=== PATIENT | male | born 1985 | race Caucasian/White ===

== ENCOUNTER 2017-07-06 16:54 | Emergency (ER) | payer SELFPAY ==
[~2017-07-06 16:54] MED LIST: HYDR10SO PO; MEDR4PAK3 PO
[2017-07-06 16:57] VITALS: BP 160/94; PULSE 109; RESP 12; TEMP 99; O2SAT 99
--- NOTE | 2017-07-06 17:42 | PD ---
HPI Chief Complaint: Injury Time Seen by Provider: 17:32 Travel History International Travel<30 days: No Contact w/Intl Traveler<30days: No Traveled to known affect area: No History of Present Illness HPI 31 male presents to emergency department with right hand and wrist pain after a tree stump fell against his hand and a pole yesterday. Patient states that the hand and wrist have been painful without relief which is why he is here today. Patient states that he has not tried any medication for this pain. Denies numbness to the area but does have some tingling. Patient states he has trouble making a fist secondary to pain. His pain is located in the wrist and metacarpal area. Pain is described as moderate and aching. Increases with movement. Patient denies radiation of pain. PFSH Past Medical History Headaches: Yes Neurologic: Yes (CYST ON HEAD) Migraines: Yes Seizures: Yes (ONE TIME MANY YEARS AGO) Social History Alcohol Use: Yes (OCC) Tobacco Use: No Substance Use: No Allergies-Medications (Allergen,Severity, Reaction): Coded Allergies: No Known Allergies (Verified Adverse Reaction, Unknown, 07/06/17) Reported Meds & Prescriptions Reported Meds & Active Scripts Active Review of Systems Except as stated in HPI: all other systems reviewed are Neg Physical Exam Narrative GENERAL: Well-nourished, well-developed patient. SKIN: Focused skin assessment warm/dry. HEAD: Normocephalic. EYES: No scleral icterus. No injection or drainage. NECK: Supple, trachea midline. No JVD or lymphadenopathy. CARDIOVASCULAR: Regular rate and rhythm without murmurs, gallops, or rubs. RESPIRATORY: Breath sounds equal bilaterally. No accessory muscle use. MUSCULOSKELETAL: No cyanosis, or edema. Right hand- TTP to the metacarpals without deformities or ecchymosis. Mild edema. Right wrist-TTP to radius and ulna without ecchymosis or deformities. BACK: Nontender without obvious deformity. No CVA tenderness. Data Data Last Documented VS Vital Signs Date Time Temp Pulse Resp B/P (MAP) Pulse Ox O2 Delivery O2 Flow Rate FiO2 07/06/17 19:06 07/06/17 16:57 99.0 109 12 99 Orders Orders Acetamin-Hydrocod 325-5 Mg ([place] 5-325 (07/06/17 17:45) Wrist, Complete ([id number]) (07/06/17 ) Hand, Complete ([id number]) (07/06/17 ) Support Splint (07/06/17 18:52) Ed Discharge Order (07/06/17 18:52) [facility] Medical Decision Making Medical Screen Exam Complete: Yes Emergency Medical Condition: Yes Differential Diagnosis Right wrist fracture versus contusion versus sprain Right hand fracture versus contusion versus sprain Narrative Course 31 male presents to emergency department with right hand and wrist pain after a tree stump fell against his hand and a pole yesterday. Patient states that the hand and wrist have been painful without relief which is why he is here today. Patient states that he has not tried any medication for this pain. Denies numbness to the area but does have some tingling. Patient states he has trouble making a fist secondary to pain. His pain is located in the wrist and metacarpal area. Pain is described as moderate and aching. Increases with movement. Patient denies radiation of pain. Vital signs stable Physical exam consistent with a contusion without deformities or abscess. hand and wrist xray- no acute process Patient advised to use [id number] anti-inflammatories for his pain. Advised to use rest ice compression and elevation for his pain. Follow-up with primary care physician within 2-3 days Return to emergency department for worsening or persistent symptoms. Diagnosis Primary Impression: Contusion of right hand Qualified Codes: S60.221A - Contusion of right hand, initial encounter Additional Impression: Contusion of right wrist Qualified Codes: S60.211A - Contusion of right wrist, initial encounter Referrals: Primary Care Physician Additional Instructions: Recommend rest, ice, use Ulises wrap, and elevate the wrist and hand for symptomatically. May use Tylenol or Motrin per package instructions. Follow-up with her primary care physician within 2-3 days. Your symptoms persist or worsen return to the emergency department Disposition: 01 DISCHARGE HOME Condition: Stable Madelin Red Jul 06, 2017 17:42
[2017-07-06] MEDS ORDERED: ACETAMINOPHEN/HYDROcodone 325 MG/5 MG TAB PO ONE (17:45)
--- NOTE | 2017-07-06 18:43 | RADRPT ---
EXAM DATE/TIME: 07/06/2017 17:47 [facility] COMPARISON: No previous studies available for comparison. INDICATIONS : Right hand 3rd and 4th finger pain, caught between pole and post MEDICAL HISTORY : None. SURGICAL HISTORY : None. ENCOUNTER: Initial ACUITY: 3 days PAIN SCORE: 8/10 LOCATION: Right Hand FINDINGS: Three view examination of the right hand demonstrates no soft tissue swelling, dislocation, or fractu re. The carpal bones appear intact. The interphalangeal and metacarpophalangeal joints are intact. Bony mineralization is normal. CONCLUSION: No fracture. Camilo Solo MD on July 06, 2017 at 18:40 Board Certified Radiologist. This report was verified electronically.
--- NOTE | 2017-07-06 18:49 | RADRPT ---
EXAM DATE/TIME: 07/06/2017 17:48 [facility] COMPARISON: No previous studies available for comparison. INDICATIONS : Right posterior wrist pain, caught between pole and post MEDICAL HISTORY : None. SURGICAL HISTORY : None. ENCOUNTER: Initial ACUITY: 3 days PAIN SCORE: 5/10 LOCATION: Right Wrist FINDINGS: Three view examination of the right wrist demonstrates no soft tissue swelling, dislocation, or fract ure. The carpal bones are in normal alignment. The joint spaces are maintained. Bony mineralizatio n is normal except for a probable small bone island associated with the hamate. CONCLUSION: 1. Benign-appearing bone island on the hamate. 2. Otherwise negative. No fracture. Camilo Solo MD on July 06, 2017 at 18:43 Board Certified Radiologist. This report was verified electronically.
== END 2017-07-06 19:08 | disposition home or self-care (01) ==
LOC: NEPK 16:54
DX: S60.221A Contusion of right hand, initial encounter (principal); S60.211A Contusion of right wrist, initial encounter; R56.9 Unspecified convulsions; W22.8XXA Striking against or struck by other objects, initial encounter
CPT/HCPCS: 73110; 73130; 99283

== ENCOUNTER 2017-10-27 14:50 | Emergency (ER) | payer SELFPAY ==
[2017-10-27 14:56] VITALS: BP 143/86; PULSE 119; RESP 18; TEMP 100.9; O2SAT 99
--- NOTE | 2017-10-27 15:53 | RADRPT ---
EXAM DATE/TIME: 10/27/2017 15:43 [facility] COMPARISON: WRIST RIGHT COMPLETE ([id number]), July 06, 2017, 17:48. INDICATIONS : Short of breath, cough. MEDICAL HISTORY : None. SURGICAL HISTORY : None. ENCOUNTER: Initial ACUITY: 1 day PAIN SCORE: 5/10 LOCATION: Bilateral chest FINDINGS: PA and lateral views of the chest demonstrate the lungs to be symmetrically aerated without evidence of mass, infiltrate or effusion. The cardiomediastinal contours are unremarkable. Osseous structure s are intact. CONCLUSION: 1. No acute cardiopulmonary findings. Chet Silva MD on October 27, 2017 at 15:49 Board Certified Radiologist. This report was verified electronically.
[2017-10-27 17:56] LABS: BASOPHIL % 0.2 % (0.0-2.0); EOSINOPHIL % 0.1 % (0.0-4.0); HEMATOCRIT 44.5 % (39.0-51.0); HEMOGLOBIN 15.1 GM/DL (13.0-17.0); LYMPH % 5.7 % (9.0-44.0); LYMPHOCYTE # 0.4 TH/MM3 (1.0-4.8); MEAN CELL VOLUME 91.4 FL (80.0-100.0); MEAN CORPUSCULAR HEMOGLOBIN 31.1 PG (27.0-34.0); MEAN PLATELET VOLUME 6.8 FL (7.0-11.0); MONOCYTE # 1.1 TH/MM3 (0-0.9); PLATELET COUNT 230 TH/MM3 (150-450); RED BLOOD COUNT 4.87 MIL/MM3 (4.50-5.90); RED CELL DISTRIBUTION WIDTH 13.6 % (11.6-17.2); WHITE BLOOD COUNT 7.6 TH/MM3 (4.0-11.0)
[2017-10-27 18:04] LABS: PROTHROMBIN TIME - PATIENT 10.1 SEC (9.8-11.6)
[2017-10-27 18:10] LABS: BACTERIA, URINE RARE /hpf; BILIRUBIN, URINE NEG (NEG); BLOOD, URINE NEG (NEG); GLUCOSE,URINE NEG (NEG); KETONE, URINE 10 mg/dL (NEG); MUCUS URINE MANY /lpf (OCC); NITRITE,URINE NEG (NEG); URINE COLOR YELLOW (YELLW/STRAW); URINE LEUKOCYTE ESTERASE NEG (NEG)
[2017-10-27 18:13] LABS: ALBUMIN 4.6 GM/DL (3.4-5.0); ALT (GPT) 49 U/L (12-78); AST (GOT) 28 U/L (15-37); BICARBONATE 29.1 MEQ/L (21.0-32.0); BLOOD UREA NITROGEN 12 MG/DL (7-18); CALCIUM 9.1 MG/DL (8.5-10.1); CHLORIDE 101 MEQ/L (98-107); CREATININE 1.16 MG/DL (0.60-1.30); GLOMERULAR FILTRATION RATE 74 ML/MIN (>89); GLUCOSE,RANDOM 86 MG/DL (74-106); SODIUM (NA) 138 MEQ/L (136-145)
[2017-10-27 18:14] LABS: ALKALINE PHOSPHATASE 56 U/L (45-117); TOTAL BILIRUBIN ADULT 0.4 MG/DL (0.2-1.0); TOTAL PROTEIN 8.1 GM/DL (6.4-8.2)
[2017-10-27 19:02] VITALS: BP 159/81; PULSE 105; RESP 24; O2SAT 97
[2017-10-27] MEDS ORDERED: SODIUM CHLOR 0.9% 1000 ML INJ 1,000 ML IV ONE ×2 (19:45→21:00)
[2017-10-27] MEDS ORDERED: RESP: LIDOCAINE HCL 4% PF 5 ML NEB NEB ONE (19:45)
[2017-10-27] MEDS ORDERED: KETOROLAC TROMETHAMINE 30 MG/ML (IVP) VIAL IV PUSH ONE (19:45)
[2017-10-27] MEDS ORDERED: methylPREDNISolone SOD SUCC 125 MG/2 ML VIAL IV PUSH ONE (19:45)
[2017-10-27 20:23] VITALS: TEMP 102.7
[2017-10-27 20:35] VITALS: O2SAT 100
[2017-10-27] MEDS ORDERED: CIPR-9 PO (23:11)
--- NOTE | 2017-10-27 23:12 | PD ---
HPI . Respiratory symptoms Chief Complaint: Respiratory Symptoms Time Seen by Provider: 19:24 Travel History International Travel<30 days: No Contact w/Intl Traveler<30days: No Traveled to known affect area: No History of Present Illness HPI 31-year-old male with no significant past medical history presents with having significant cough that is nonproductive, shortness of breath secondary to repetitive/staccato cough for the past several days, generalized aches pains and chills with diaphoresis. Patient has no significant travel history internationally, however patient does note that he is concerned about possible black mold in his apartment emanating from his air conditioning unit. Patient has had no ill contacts. Patient also notes GI upset, nausea without vomiting, denies diarrhea. No rashes no dysuria urgency or frequent PFSH Past Medical History Narrative Medical Past medical history reviewed Headaches: Yes Neurologic: Yes (CYST ON HEAD) Migraines: Yes Seizures: Yes (ONE TIME MANY YEARS AGO) Social History Alcohol Use: Yes (OCC) Tobacco Use: No Substance Use: No Allergies-Medications (Allergen,Severity, Reaction): Coded Allergies: No Known Allergies (Verified Adverse Reaction, Unknown, 10/27/17) Reported Meds & Prescriptions Reported Meds & Active Scripts Active No Active Prescriptions or Reported Medications Narrative Medication Allergies and medications reviewed Review of Systems General / Constitutional: Positive: Fever, Chills Eyes: No: Visual changes HENT: No: Headaches Cardiovascular: Positive: Chest Pain or Discomfort Respiratory: Positive: Cough, Shortness of Breath, No: Wheezing, Orthopnea, Hemoptysis, Night Sweats, Pleuritic Pain Gastrointestinal: Positive: Nausea, No: Vomiting, Diarrhea, Abdominal Pain Genitourinary: No: Urgency, Frequency, Dysuria, Hematuria Musculoskeletal: No: Pain Skin: No Rash Neurologic: No: Weakness Psychiatric: No: Depression Endocrine: No: Polydipsia Hematologic/Lymphatic: No: Easy Bruising Physical Exam Narrative GENERAL: Awake and alert, ill-appearing, tachycardic at 120, oxygen saturation 99% on room air SKIN: Sallow appearing, diaphoretic. No rashes HEAD: Atraumatic. Normocephalic. EYES: Pupils equal and round. No scleral icterus. No injection or drainage. ENT: No nasal bleeding or discharge. Mucous membranes pink and moist. NECK: Trachea midline. No JVD. Supple nontender full range of motion CARDIOVASCULAR: Tachycardic regular 120 no murmurs rubs or gallops RESPIRATORY: No accessory muscle use. Clear to auscultation. Breath sounds equal bilaterally. No adventitious lung sounds. Patient has staccato cough with breath-holding GASTROINTESTINAL: Abdomen soft, non-tender, nondistended. Hepatic and splenic margins not palpable. MUSCULOSKELETAL: Extremities without clubbing, cyanosis, or edema. No obvious deformities. NEUROLOGICAL: Awake and alert. No obvious focal deficits PSYCHIATRIC: Appropriate mood and affect; insight and judgment normal. Data Data Last Documented VS Vital Signs Date Time Temp Pulse Resp B/P (MAP) Pulse Ox O2 Delivery O2 Flow Rate FiO2 10/27/17 20:35 100 21 10/27/17 20:23 102.7 10/27/17 19:02 105 24 Room Air Orders Orders Complete Blood Count With Diff (10/27/17 14:59) Comprehensive Metabolic Panel (10/27/17 14:59) Lipase (10/27/17 14:59) Prothrombin Time / Inr (Pt) (10/27/17 14:59) Act Partial Throm Time (Ptt) (10/27/17 14:59) Urinalysis - C+S If Indicated (10/27/17 14:59) Electrocardiogram (10/27/17 14:59) Chest, Pa & Lat (10/27/17 ) Lidocaine Pf 4% Neb (Lidocaine Pf 4% Neb (10/27/17 19:45) Methylprednisolone So Succ Inj (Solumedr (10/27/17 19:45) Ketorolac Inj (Toradol Inj) (10/27/17 19:45) Sodium Chlor 0.9% 1000 Ml Inj (Ns 1000 M (10/27/17 19:45) Influenzae A/B Antigen (10/27/17 19:37) D-Dimer (10/27/17 20:49) Sodium Chlor 0.9% 1000 Ml Inj (Ns 1000 M (10/27/17 21:00) Legionella Urinary Antigen (10/27/17 23:00) Ciprofloxacin (Cipro) (10/27/17 23:15) Labs Laboratory Tests Test 10/27/17 16:55 10/27/17 21:30 White Blood Count 7.6 TH/MM3 Red Blood Count 4.87 MIL/MM3 Hemoglobin 15.1 GM/DL Hematocrit 44.5 % Mean Corpuscular Volume 91.4 FL Mean Corpuscular Hemoglobin 31.1 PG Mean Corpuscular Hemoglobin Concent 34.0 % Red Cell Distribution Width 13.6 % Platelet Count 230 TH/MM3 Mean Platelet Volume 6.8 FL Neutrophils (%) (Auto) 80.0 % Lymphocytes (%) (Auto) 5.7 % Monocytes (%) (Auto) 14.0 % Eosinophils (%) (Auto) 0.1 % Basophils (%) (Auto) 0.2 % Neutrophils # (Auto) 6.0 TH/MM3 Lymphocytes # (Auto) 0.4 TH/MM3 Monocytes # (Auto) 1.1 TH/MM3 Eosinophils # (Auto) 0.0 TH/MM3 Basophils # (Auto) 0.0 TH/MM3 CBC Comment DIFF FINAL Differential Comment Prothrombin Time 10.1 SEC Prothromb Time International Ratio 1.0 RATIO Activated Partial Thromboplast Time 25.9 SEC Urine Color YELLOW Urine Turbidity CLEAR Urine pH 6.0 Urine Specific [place] 1.032 Urine Protein 30 mg/dL Urine Glucose (UA) NEG mg/dL Urine Ketones 10 mg/dL Urine Occult Blood NEG Urine Nitrite NEG Urine Bilirubin NEG Urine Urobilinogen LESS THAN 2.0 MG/DL Urine Leukocyte Esterase NEG Urine RBC 1 /hpf Urine WBC 2 /hpf Urine Bacteria RARE /hpf Urine Mucus MANY /lpf Microscopic Urinalysis Comment CULT NOT INDICATED Blood Urea Nitrogen 12 MG/DL Creatinine 1.16 MG/DL Random Glucose 86 MG/DL Total Protein 8.1 GM/DL Albumin 4.6 GM/DL Calcium Level 9.1 MG/DL Alkaline Phosphatase 56 U/L Aspartate Amino Transf (AST/SGOT) 28 U/L Alanine Aminotransferase (ALT/SGPT) 49 U/L Total Bilirubin 0.4 MG/DL Sodium Level 138 MEQ/L Potassium Level 3.8 MEQ/L Chloride Level 101 MEQ/L Carbon Dioxide Level 29.1 MEQ/L Anion Gap 8 MEQ/L Estimat Glomerular Filtration Rate 74 ML/MIN Lipase 84 U/L D-Dimer Quantitative (PE/DVT) 0.24 MG/L FEU [facility] Medical Decision Making Medical Screen Exam Complete: Yes Emergency Medical Condition: Yes Medical Record Reviewed: Yes Differential Diagnosis Acute viral syndrome, influenza, pneumonia, Legionella, Narrative Course Chest x-ray negative, laboratory examinations normal. Patient's d-dimer is normal. Influenza negative. Legionella via urine antigen pending Patient has interval slight improvement after IV fluids. Patient started presumptively on Cipro, discharged. Patient will be staying locally, with strict instructions to return promptly for worsening Diagnosis Primary Impression: Acute bronchitis Qualified Codes: J20.9 - Acute bronchitis, unspecified Patient Instructions: Acute Bronchitis (ED), General Instructions Additional Instructions: Cipro 500 mg twice daily for 10 days. Tylenol/Motrin as directed for aches and pains and fever. Drink plenty of fluids. Return promptly for worsening Scripts Ciprofloxacin (Cipro) 500 Mg Tab 500 MG PO BID for Infection for 10 Days, #20 TAB 0 Refills Prov: James Nazario MD 10/27/17 Disposition: 01 DISCHARGE HOME Condition: Stable James Nazario MD Oct 27, 2017 23:12
[2017-10-27] MEDS ORDERED: CIPROFLOXACIN 500 MG TAB PO ONE (23:15)
[2017-10-27 23:21] VITALS: BP 129/77
--- NOTE | 2017-10-28 20:43 | EKG ---
Date Performed: 10/27/2017 Time Performed: 16:52:36 PTAGE: 31 years EKG: ECTOPIC ATRIAL TACHYCARDIA NONSPECIFIC T-WAVE ABNORMALITY ABNORMAL RHYTHM ECG PREVIOUS TRACING : 12/23/2010 16.44 DOCTOR: Johnathan Guardado Interpretating Date/Time 10/28/2017 20:42:15
== END 2017-10-27 23:49 | disposition home or self-care (01) ==
LOC: NED 14:50 → NEPC 23:49
DX: J20.9 Acute bronchitis, unspecified (principal)
CPT/HCPCS: 71046; 80053; 81001; 83690; 85025; 85379; 85610; 85730; 87449; 87804; 93005; 94664; 96374; 96375; 99285; J1885; J2930; J7030